=== PATIENT | female | born 1960 | race Two or more races ===

== ENCOUNTER 2019-10-31 06:00 | Day surgery (SDC) | payer OTHER ==
[~2019-10-31 06:00] MED LIST: TOPROL XL50 M1 PO; VALSARTAN-HCTZ1 EAC2 PO
== END 2019-10-31 16:00 | disposition home or self-care (01) ==
LOC: CIR.AMB 06:00 → ADM 07:45 → CIR.AMB 07:45
DX: D26.1 Other benign neoplasm of corpus uteri (principal)

== ENCOUNTER 2020-02-01 07:30 | Inpatient (IN) | payer OTHER ==
[~2020-02-01] VITALS: Ht 160 cm; Wt 74.8 kg
[2020-02-07] MEDS ORDERED: MEGESTROL ACETA40 MG PO (09:26)
[2020-02-08] MEDS ORDERED: IBUPROFEN800 MG PO (07:12)
[2020-02-08] MEDS ORDERED: NEURONTIN600 MG PO (07:12)
[2020-02-08] MEDS ORDERED: POLY119PG PO (07:12)
[2020-02-08] MEDS ORDERED: SIMETHICONE125 M1 PO (07:12)
== END 2020-02-08 09:20 | DRG 743 ==
LOC: OB/GYN 02-06 06:00 → O/R 02-06 06:00 → OB/GYN 02-06 07:30
PROVIDERS: ADMIT Obstetrics & Gynecology; ATTEND Obstetrics & Gynecology
PROC: 0UT70ZZ Resection of Bilateral Fallopian Tubes, Open Approach (ICD-10-PCS; 2020-02-06)
PROC: 0UT20ZZ Resection of Bilateral Ovaries, Open Approach (ICD-10-PCS; 2020-02-06)
PROC: 0UT90ZZ Resection of Uterus, Open Approach (ICD-10-PCS; principal; 2020-02-06 08:30)
DX: D25.0 Submucous leiomyoma of uterus (principal)